=== PATIENT | female | born 1980 | race Two or more races ===

== ENCOUNTER 2018-08-31 11:40 | Emergency (ER) | payer OTHER ==
[~2018-08-31] VITALS: Ht 167.6 cm; Wt 72.6 kg
[~2018-08-31 11:40] MED LIST: LEVSIN0.125 MG PO; PROTONIX20 MG PO; PROTONIX40 MG PO; ZOFRAN4 MG SL
== END 2018-08-31 16:58 | disposition home or self-care (01) ==
LOC: ER 11:40
DX: O26.892 Other specified pregnancy related conditions, second trimester (principal); S30.0XXA Contusion of lower back and pelvis, initial encounter; R10.2 Pelvic and perineal pain; Z34.02 Encounter for supervision of normal first pregnancy, second trimester; V49.9XXA Car occupant (driver) (passenger) injured in unspecified traffic accident, initial encounter; Y93.89 Activity, other specified; Y92.488 Other paved roadways as the place of occurrence of the external cause; Y99.8 Other external cause status

== ENCOUNTER 2018-11-07 06:41 | Inpatient (IN) | payer OTHER ==
[~2018-11-07] VITALS: Ht 167.6 cm; Wt 74.4 kg
[2018-11-07] MEDS ORDERED: PRENATAL TABLE1 EAC1 PO (07:35)
[2018-11-12] MEDS ORDERED: CEFUROXIME500 MG PO (10:15)
[2018-11-12] MEDS ORDERED: OXYC1TAB9 PO (10:16)
[2018-11-12] MEDS ORDERED: KETO10TA2 PO (10:16)
== END 2018-11-12 13:42 | disposition home or self-care (01) | DRG 786 ==
LOC: LDR 06:41 → OB/GYN 06:41
PROVIDERS: ADMIT Obstetrics & Gynecology
PROC: 4A1HXCZ Monitoring of Products of Conception, Cardiac Rate, External Approach (ICD-10-PCS; 2018-11-07)
PROC: 10D00Z1 Extraction of Products of Conception, Low, Open Approach (ICD-10-PCS; principal; 2018-11-08 14:00)
DX: O82 Encounter for cesarean delivery without indication (principal); O60.14X0 Preterm labor third trimester with preterm delivery third trimester, not applicable or unspecified; Z3A.32 32 weeks gestation of pregnancy; Z37.0 Single live birth